=== PATIENT | female | born 1990 | race Caucasian/White ===

== ENCOUNTER → 2020-05-10 | Outpatient (CLI) | payer OTHER ==
[~2020-05-10] MED LIST: BUSP5TAB PO; GADOTERATE 5 MMOL/10ML VIAL. IVP ONE
--- NOTE | 2020-05-10 11:08 | KCIC ---
EXAM: MRI RIGHT KNEE WITH AND WITHOUT IV CONTRAST DATE: 05/10/2020 8:00 AM CLINICAL INDICATION: Bone lesion seen on prior knee radiographs. COMPARISON: None. TECHNIQUE: Multiplanar, multisequence MRI of the right knee was performed with and without IV contrast. FINDINGS: T1 marrow signal is preserved. There is focal cortical thickening of the anterior cortex of the distal right femur which may represent changes of healed prior trauma, stress reaction or healed NOF. No significant associated edema or enhancement. Imaging was not performed for evaluation of internal derangement of the knee. Within these constraints: ACL and PCL are grossly intact. Medial and lateral collateral ligamentous complexes are grossly intact. No obvious meniscal tear is identified although evaluation is significantly limited. Grossly normal muscle signal and bulk. Mild edema within the superolateral Hoffa's fat pad may be seen with Hoffa's impingement syndrome. No evidence for fracture or osteonecrosis. IMPRESSION: 1. Focal cortical thickening anterior femoral cortex without aggressive imaging characteristics. Any further imaging follow-up should be based on clinical criteria. 2. Mild edema within the superolateral Hoffa's fat pad may be seen with Hoffa's impingement syndrome. Electronically signed by: Curry Shahid MD (05/10/2020 11:05 AM) [id number]
== END ==
LOC: KCIC MRI 07:48
PROVIDERS: ATTEND Family Medicine
DX: M79.4 Hypertrophy of (infrapatellar) fat pad (principal); E88.89 Other specified metabolic disorders; R60.0 Localized edema
CPT/HCPCS: 73723; A9575